=== PATIENT | female | born 1985 | race Caucasian/White ===

== ENCOUNTER 2018-08-25 06:07 | Day surgery (SDC) | payer OTHER ==
[2018-08-18 10:58] LABS: HEMATOCRIT 41.6 % (36.0-47.0); HEMOGLOBIN 14.4 g/dL (12.0-15.5); MEAN CORPUSCULAR HEMOGLOBIN 31.5 pg (27.0-33.4); MEAN CORPUSCULAR HGB CONC 34.6 g/dL (32.0-36.0); MEAN CORPUSCULAR VOLUME 91 fl (80-97); PLATELET COUNT 247 10^3/uL (150-450); RED BLOOD COUNT 4.57 10^6/uL (3.72-5.28)
[2018-08-18 10:58] LABS: APPEARANCE,URINE CLOUDY; BILIRUBIN,URINE NEGATIVE (NEGATIVE); COLOR,URINE YELLOW; GLUCOSE, URINE NEGATIVE (NEGATIVE); KETONES,URINE NEGATIVE (NEGATIVE); LEUKOCYTE ESTERASE,URINE NEGATIVE (NEGATIVE); NITRITE,URINE NEGATIVE (NEGATIVE); PROTEIN,URINE NEGATIVE (NEGATIVE); URINE SPECIFIC GRAVITY 1.019; UROBILINOGEN,URINE NEGATIVE mg/dL (<2.0)
[~2018-08-25 06:07] MED LIST: LIDOCAINE 0.5% INJ-PF (5 MG/ML) 50 ML SDV SUBCUT PRN; RINGERS SOLUTION,LACTATED 1,000 ML IV PRN
[2018-08-25] MEDS ORDERED: KETOROLAC TROMETHAMINE 60 MG/2 ML SDV ONE (08:02)
[2018-08-25] MEDS ORDERED: ONDANSETRON HCL INJ/PF 4 MG/2 ML SDV ONE (08:02)
[2018-08-25] MEDS ORDERED: MIDAZOLAM 2 MG/2 ML INJ ONE (08:02)
[2018-08-25] MEDS ORDERED: LIDOCAINE 2% INJ-PF (20 MG/ML) 10 ML AMPUL ONE (08:02)
[2018-08-25] MEDS ORDERED: FENTANYL CITRATE INJ/PF 250 MCG/5 ML AMPULE ONE (08:02)
[2018-08-25] MEDS ORDERED: DEXAMETHASONE SOD PHOSPHATE INJ 4 MG/1 ML VIAL ONE (08:02)
[2018-08-25] MEDS ORDERED: PROPOFOL INJ 200 MG/20 ML VIAL IV ONE (08:03)
[2018-08-25] MEDS ORDERED: BUPIVACAINE HCL 0.25 % INJ/PF (2.5 MG/1 ML) 30 ML VIAL ONE (08:04)
[2018-08-25] MEDS ORDERED: SUGAMMADEX SODIUM 200 MG/2 ML SDV IV ONE (08:52)
[2018-08-25] MEDS ORDERED: PROMETHAZINE HCL INJ 25 MG/1 ML VIAL IV PRN ×2 (08:56)
[2018-08-25] MEDS ORDERED: FENTANYL CITRATE INJ/PF 100 MCG/2 ML AMPUL IV PRN ×2 (08:56)
[2018-08-25] MEDS ORDERED: DIPHENHYDRAMINE HCL 50 MG/ML VIAL IV PRN (08:56)
[2018-08-25] MEDS ORDERED: MEPERIDINE HCL/PF INJ 25 MG/1 ML DISP.SYRIN IV PRN (08:56)
[2018-08-25] MEDS: FENTANYL CITRATE INJ/PF 100 MCG/2 ML AMPUL ONE ×2 (09:27→09:32)
--- NOTE | 2018-08-25 09:50 | OPERATIVE REPORT E ---
Operative Report NAME: FEDE PARK : 1985 AGE: 32Y DATE OF SURGERY: 08/25/2018 ROOM: PREOPERATIVE DIAGNOSIS: PELVIC PAIN. POSTOPERATIVE DIAGNOSIS: PELVIC PAIN PLUS HEMORRHAGIC LEFT OVARIAN CYST. OPERATION: Diagnostic laparoscopy with left salpingo-oophorectomy. SURGEON: Jose Francisco NANCE M.D. ANESTHESIA: General anesthesia. ESTIMATED BLOOD LOSS: Less than 5 mL. TISSUE REMOVED: Ovary and tube. PROCEDURE: The patient was placed in the dorsal lithotomy position, prepped and draped in the usual sterile fashion. The bladder was drained with a catheter and a sponge stick was placed in the vagina. A 5 mm trocar was introduced on the left and a second in existing eschar above the symphysis. The ovary on the left was loosely adhered to the anterior vaginal wall but was free otherwise and appeared to have a large hemorrhagic cyst present. Third puncture was made below the umbilicus and existing eschar. Using a Harmonic scalpel, the left infundibulopelvic was identified, divided, and the film adhesions were divided from the apex of the vagina. The bag was then placed into the abdomen and the tube and ovary removed. A 12 trocar was then removed and the fascia closed with 0-Vicryl and the skin with subcutaneous 4-0 Vicryl. The pelvis was noted to be hemostatic. The two bags were removed and the incision closed with subcutaneous 4-0 Vicryl. The patient tolerated well and was taken to recovery in good condition. Sponge stick was removed. DICTATING PHYSICIAN: Jose Francisco NANCE M.D. [id number] PHY#: [id number] ID: [id number] JOB#: [id number] ACCT: [id number] cc:Jose Francisco NANCE M.D. >
[2018-08-25] MEDS ORDERED: IBUPROFEN 800 MG TABLET PO SCH (10:00)
[2018-08-25] MEDS ORDERED: OXYCODONE-ACETAMINOPHEN 5-325 MG TABLET PO PRN (10:02)
[2018-08-25] MEDS ORDERED: OXYCODONE-ACETAMINOPHEN 5-325 MG TABLET ONE (10:12)
[2018-08-25] MEDS ORDERED: SUCCINYLCHOLINE CHLORIDE INJ 200 MG/10 ML VIAL ONE (10:52)
[2018-08-25] MEDS ORDERED: ROCURONIUM BROMIDE INJ 50 MG/5 ML VIAL IV ONE (10:52)
[2018-08-25 11:36] VITALS: BP 127/94
[2018-08-25] MEDS ORDERED: ONDANSETRON HCL 8 MG TABLET PO SCH (14:00)
== END 2018-08-25 11:15 | disposition home or self-care (01) ==
LOC: OROUT 06:07
PROVIDERS: ATTEND Obstetrics & Gynecology Gynecology
DX: N83.12 Corpus luteum cyst of left ovary (principal); N83.02 Follicular cyst of left ovary; R10.2 Pelvic and perineal pain
CPT/HCPCS: 36415; 85027; 81005; 88305 ×2; 58661; J2250; J3490 ×3; J1100; J1885; J3010 ×2; J0330; J2405; J2704; 840

== ENCOUNTER 2019-06-09 21:55 | Emergency (ER) | payer MEDICAID, OTHER ==
[2019-06-09 22:21] VITALS: BP 121/80
[2019-06-09] MEDS ORDERED: KETOROLAC TROMETHAMINE 60 MG/2 ML SDV IM ONE (22:40)
[2019-06-09] MEDS ORDERED: SULFAMETHOXAZOLE/TRIMETHOPRIM 800-160 MG TABLET PO ONE (22:40)
--- NOTE | 2019-06-09 22:45 | ER Document Report ---
ED General - General Chief Complaint: Abscess Stated Complaint: POSS SPIDER BITE Time Seen by Provider: 06/09/19 22:28 Primary Care Provider: PAULETTE NICOLAS PA-C [Primary Care Provider] - Follow up as needed TRAVEL OUTSIDE OF THE [place] IN LAST 30 DAYS: No - HPI Notes: Patient is a 33-year-old female presents emergency department for evaluation of a painful and red area on her left buttock. She noticed it yesterday. She was unsure as to whether or not it was an insect bite of some sort, but denies any known injury. She said no fevers or chills, no nausea or vomiting. She states the area is red and firm. She never had anything similar, has no history of MRSA. - Related Data Allergies/Adverse Reactions: No Known Allergies Allergy (Verified 06/09/19 22:18) Home Medications: Estradiol, Zyrtec Past Medical History - General Information source: Patient - Social History Smoking Status: Former Smoker Family History: CVA, Hypertension Patient has suicidal ideation: No Patient has homicidal ideation: No - Past Medical History Cardiac Medical History: Denies: Hx Coronary Artery Disease, Hx Heart Attack, Hx Hypertension Pulmonary Medical History: Denies: Hx Asthma, Hx Bronchitis, Hx COPD, Hx Pneumonia Neurological Medical History: Denies: Hx Cerebrovascular Accident, Hx Seizures Musculoskeletal Medical History: Denies Hx Arthritis Past Surgical History: Reports: Hx Gynecologic Surgery, Hx Hysterectomy, Hx Orthopedic Surgery - Lumbar spinal fusion - Immunizations Hx Diphtheria, Pertussis, Tetanus Vaccination: No Review of Systems - Review of Systems Skin: See HPI -: Yes All other systems reviewed and negative Physical Exam - Vital signs Vitals: Temp Pulse Resp BP Pulse Ox 97.6 F 82 16 121/80 98 06/09/19 22:14 06/09/19 22:14 06/09/19 22:14 06/09/19 22:14 06/09/19 22:14 - Notes Notes: Vital signs reviewed, please refer to chart. Head is normocephalic, atraumatic. Pupils equal round, reactive to light. Neck is supple without meningismus. Heart is regular rate and rhythm. Lungs are clear to auscultation bilaterally. Abdomen is soft, nontender, normoactive bowel sounds throughout. Extremities without cyanosis, clubbing. Posterior calves are nontender. Examination of the skin of the left buttock yields an approximately 8 cm circular induration and erythema. Centrally there appears to be a pustule that has opened recently. Absolutely no fluctuance is appreciated, the area is indurated. It does not involve the gluteal cleft. Course - Re-evaluation Re-evalutation: 06/09/19 22:43 Patient presents emergency department for evaluation. She is a left buttock cellulitis. She does not have any clear induration, in fact it looks like she may have had a pustule that self drained. The area has already been circled by a friend to demarcate the areas of erythema. We will treat her with Toradol and Bactrim here. I will start her on Bactrim. She is to take this prescription until gone. She is told to keep the area clean with soap and water, avoid squeezing or pushing on the area whenever possible. She voiced understanding. Otherwise she should follow-up with primary care, return to the ED with worsening. - Vital Signs Vital signs: Temp Pulse Resp BP Pulse Ox 97.6 F 82 16 121/80 98 06/09/19 22:14 06/09/19 22:14 06/09/19 22:14 06/09/19 22:14 06/09/19 22:14 Discharge - Discharge Clinical Impression: Cellulitis of left buttock Condition: Stable Disposition: HOME, SELF-CARE Instructions: Trimethoprim-Sulfa ([facility]), Cellulitis ([facility]) Additional Instructions: Take antibiotic as prescribed until it is gone. You can continue [id number] ibuprofen as needed for pain. Keep the area clean with soap and water. Avoid squeezing or pushing on the area. Follow-up with primary care next week. If you develop increased redness, fevers, increased pain, or any other new or concerning symptoms, please return immediately to the emergency department for evaluation. Referrals: PAULETTE NICOLAS PA-C [Primary Care Provider] - Follow up as needed
== END 2019-06-09 23:05 | disposition home or self-care (01) ==
LOC: ER 21:55
DX: L03.317 Cellulitis of buttock (principal); Z79.899 Other long term (current) drug therapy; Z87.891 Personal history of nicotine dependence
CPT/HCPCS: 99283; 96372; J1885; J3490